=== PATIENT | female | born 1955 | race Caucasian/White ===

== ENCOUNTER 2016-08-30 10:03 | Emergency (ER) | payer OTHER ==
[2016-08-30 10:55] VITALS: BP 103/63
--- NOTE | 2016-08-30 11:31 | UC ---
Complaint Female HPI - HPI Summary HPI Summary: 61 year old female with complaints of urinary urgency, frequency, and burning x 24 hours. States symptoms started 1 day post coital. She states it happens about once per year - History Of Current Complaint Chief Complaint: UCGU Stated Complaint: URINARY COMPLAINT Time Seen by Provider: 08/30/16 11:23 Hx Obtained From: Patient Hx Last Menstrual Period: 03/29/15 Onset/Duration: Gradual Onset, Lasting Days - 24 hours, Still Present Timing: Constant Severity Initially: Mild Severity Currently: Moderate Character: Burning Aggravating Factor(s): Urination Associated Signs And Symptoms: Negative: Fever, Back Pain, Vaginal Bleeding/ Discharge, Vaginal Discharge, Nausea, Vomiting(# Of Episodes =), Genital Blisters - Risk Factors Ectopic Risk Factor: Negative Ovarian Torsion Risk Factor: Negative - Allergies/Home Medications Allergies/Adverse Reactions: Allergies Allergy/AdvReac Type Severity Reaction Status Date / Time Sulfa Antibiotics Allergy Intermediate feet Verified 08/30/16 10:43 swelling/hives Home Medications: Home Medications Anastrozole [Arimidex] 1 mg PO DAILY 08/30/16 [History Confirmed 08/30/16] Ergocalciferol [Vitamin D2] 1.25 mg PO WEEKLY 08/30/16 [History Confirmed ] PMH/Surg Hx/FS Hx/Imm Hx Previously Healthy: Yes Cardiovascular History Of: Reports: Hypertension - Surgical History Surgical History: Yes Surgery Procedure, Year, and Place: right lumpectomy 2016 - Family History Known Family History: Negative: Hypertension - Social History Occupation: Employed Full-time Lives: With Family Alcohol Use: None Substance Use Type: None Smoking Status (MU): Never Smoked Tobacco - Immunization History Most Recent Influenza Vaccination: 05/19/14 Review of Systems Constitutional: Negative Skin: Negative Eyes: Negative ENT: Negative Respiratory: Negative Cardiovascular: Negative Gastrointestinal: Abdominal Pain - mild low abd/pelvic cramping pressure Genitourinary: Dysuria, Hematuria, Frequency, Urgency Motor: Negative Neurovascular: Negative Musculoskeletal: Negative Neurological: Negative Psychological: Negative All Other Systems Reviewed And Are Negative: Yes Physical Exam Triage Information Reviewed: Yes Appearance: No Pain Distress, Well-Nourished, Ill-Appearing - mildly Vital Signs: Initial Vital Signs Temp 98.7 F 08/30/16 10:50 Pulse 83 08/30/16 10:50 Resp 16 08/30/16 10:50 BP 103/63 08/30/16 10:50 Pulse Ox 97 08/30/16 10:50 Vital Signs Reviewed: Yes Eyes: Positive: Conjunctiva Clear. Negative: Discharge ENT: Positive: Hearing grossly normal. Negative: Nasal congestion Neck: Positive: Supple, Nontender Respiratory: Positive: Lungs clear, Normal breath sounds Cardiovascular: Positive: RRR, No Murmur Abdomen Description: Positive: Nontender, Soft. Negative: CVA Tenderness (R), CVA Tenderness (L), Distended, Guarding Musculoskeletal: Positive: Strength Intact, ROM Intact Neurological: Positive: Alert, Muscle Tone Normal Psychological: Positive: Age Appropriate Behavior - pleasant and cooperative Skin: Negative: rashes, breakdown Complaint Female Dx - Course Course Of Treatment: UA = positive. Education about UTI, antibiotic use - Differential Dx/Diagnosis Provider Diagnoses: UTI Discharge - Discharge Plan Condition: Stable Disposition: HOME Prescriptions: Nitrofurantoin Monohyd Macro [Macrobid] 100 mg PO BID #10 cap Phenazopyridine TAB* [Pyridium TAB*] 100 mg PO TID PRN #3 tab PRN Reason: painful urination Patient Education Materials: Urinary Tract Infection in Women (ED), Nitrofurantoin Combination (By mouth)
== END 2016-08-30 11:44 | disposition home or self-care (01) ==
LOC: UCCORT 10:03
DX: N39.0 Urinary tract infection, site not specified (principal); Z88.2 Allergy status to sulfonamides
CPT/HCPCS: 87077; 87086; 87186; 99212; G0463